=== PATIENT | female | born 1955 | race Hispanic/Latino ===

== ENCOUNTER 2020-07-08 11:32 | Emergency (ER) | payer SELFPAY ==
[2020-07-08] MEDS ORDERED: TETANUS/DIPHTHERIA TOXOID [ADULT] 0.5 ML VIAL IM ONE (11:46)
[2020-07-08] MEDS ORDERED: HYDROCODONE/ACETAMINOPHEN 10/325 MG TAB ONE (12:06)
[2020-07-08] MEDS ORDERED: L.E.T. GEL 3ML SYG TP ONE (12:34)
== END 2020-07-08 13:30 | disposition home or self-care (01) ==
LOC: EDH 11:32
DX: S01.01XA Laceration without foreign body of scalp, initial encounter (principal); W01.0XXA Fall on same level from slipping, tripping and stumbling without subsequent striking against object, initial encounter; Y93.89 Activity, other specified; Y92.89 Other specified places as the place of occurrence of the external cause; Y99.8 Other external cause status
CPT/HCPCS: 12002; 70450; 90471; 90714

== ENCOUNTER 2020-07-17 10:21 | Emergency (ER) | payer SELFPAY | END 2020-07-17 10:59 | disposition home or self-care (01) | LOC: EDH 10:21 | DX: S01.01XD Laceration without foreign body of scalp, subsequent encounter (principal); R03.0 Elevated blood-pressure reading, without diagnosis of hypertension; X58.XXXD Exposure to other specified factors, subsequent encounter | CPT/HCPCS: 99281 ==

== ENCOUNTER 2020-09-30 10:48 | Inpatient (IN) | payer SELFPAY ==
[~2020-09-30] VITALS: Ht 152.4 cm; Wt 85.5 kg
[2020-09-30] MEDS ORDERED: ONDANSETRON 4MG INJ ONE (11:52)
[2020-09-30] MEDS ORDERED: MORPHINE 4 MG SYG ONE (11:52)
[2020-09-30 13:01] LABS: BASOPHILS % (AUTO) 0.8 % (0.0-5.0); EOSINOPHILS % (AUTO) 0.5 % (0.0-8.0); HEMATOCRIT 46.7 % (36-48); LYMPHOCYTES % (AUTO) 23.2 % (21.0-51.0); MEAN CORPUSCULAR HGB CONC 31.9 g/dL (32.0-36.0); NEUTROPHILS % (AUTO) 68.9 % (40.0-77.0); PLATELET COUNT (AUTO) 370 K/uL (130-400); RED BLOOD CELL COUNT(AUTO) 5.13 MIL/uL (4.00-5.50); RED CELL DISTRIBUTION WIDTH 13.2 % (11.0-15.5); WHITE BLOOD COUNT (AUTO) 11.8 K/uL (4.8-10.8)
[2020-09-30 13:07] LABS: PROTHROMBIN TIME 10.9 SEC (9.6-11.6)
[2020-09-30 13:08] LABS: PARTIAL THROMBOPLASTIN TIME 24.7 SEC (26.3-35.5)
[2020-09-30 13:11] LABS: CREATININE 0.8 mg/dL (0.5-1.5); POTASSIUM 3.6 mmol/L (3.5-5.1)
[2020-09-30 13:15] LABS: ALBUMIN 3.9 g/dL (3.5-5.0); BILIRUBIN,TOTAL 0.4 mg/dL (0.2-1.0); TOTAL PROTEIN, SERUM 7.8 g/dL (6.0-8.3)
[2020-09-30] MEDS ORDERED: ONDANSETRON 4MG INJ IV PRN (13:45)
[2020-09-30] MEDS ORDERED: ACETAMINOPHEN WITH CODEINE 1 TAB TAB ONE (16:58)
[2020-09-30] MEDS ORDERED: CEFTRIAXONE 1G VIAL ONE (19:10)
[2020-09-30] MEDS: FAMOTIDINE 20MG VIAL IV SCH (21:00)
[2020-09-30] MEDS ORDERED: FAMOTIDINE 20MG VIAL IV ONE (21:27)
[2020-09-30 21:45] VITALS: BP 137/41
[2020-09-30] MEDS: ACETAMINOPHEN WITH CODEINE 1 TAB TAB PO PRN (22:04)
[2020-10-01] VITALS (23 sets, daily range): BP systolic 121–161; BP diastolic 55–91
[2020-10-01 04:03] LABS: BASOPHILS % (AUTO) 0.5 % (0.0-5.0); EOSINOPHILS % (AUTO) 0.4 % (0.0-8.0); HEMATOCRIT 43.7 % (36-48); LYMPHOCYTES % (AUTO) 23.4 % (21.0-51.0); MEAN CORPUSCULAR HEMOGLOBIN 29.8 pg (27.0-33.0); MEAN CORPUSCULAR HGB CONC 32.7 g/dL (32.0-36.0); MONOCYTES % (AUTO) 7.3 % (3.0-13.0); PLATELET COUNT (AUTO) 354 K/uL (130-400); RED CELL DISTRIBUTION WIDTH 13.3 % (11.0-15.5)
[2020-10-01] MEDS: MORPHINE 2 MG SYG IV PRN ×3 (04:15→15:37)
[2020-10-01 04:16] LABS: CREATININE 0.9 mg/dL (0.5-1.5); POTASSIUM 3.8 mmol/L (3.5-5.1)
[2020-10-01] MEDS: CEFTRIAXONE 1G VIAL IV SCH (09:34)
[2020-10-01] MEDS: FAMOTIDINE 20MG VIAL IV SCH ×2 (09:34→20:40)
[2020-10-01 09:47] LABS: APPEARANCE,URINE Clear (CLEAR); BILIRUBIN,URINE Negative (NEGATIVE); COLOR,URINE Yellow (YELLOW); GLUCOSE, URINE (UA) Negative (NEGATIVE); KETONES,URINE Negative (NEGATIVE); LEUKOCYTE ESTERASE ,URINE Trace (NEGATIVE); NITRATE,URINE Negative (NEGATIVE); OCCULT BLOOD,URINE Trace (NEGATIVE); PH,URINE 5.5 (5.0-8.0); PROTEIN,URINE Negative (NEGATIVE)
[2020-10-01 10:08] LABS: BACTERIA,URINE Moderate /HPF (None Seen)
[2020-10-01] MEDS ORDERED: ROPIVACAINE 0.5% 5MG/ML 30ML IJ ONE ×2 (12:44→13:02)
[2020-10-01] MEDS ORDERED: LIDOCAINE PF 100MG/5ML (2%) SYRINGE 5ML ONE (13:02)
[2020-10-01] MEDS ORDERED: PROPOFOL 10 MG/ML 20ML VIAL IV ONE (13:03)
[2020-10-01] MEDS ORDERED: MIDAZOLAM HCL 1 MG/ML 2ML VIAL ONE (13:03)
[2020-10-01] MEDS ORDERED: FENTANYL CITRATE PF 50 MCG/1 ML 2ML VIAL ONE (13:16)
[2020-10-01] MEDS ORDERED: ONDANSETRON 4MG INJ ONE (13:28)
[2020-10-01] MEDS ORDERED: DEXAMETHASONE SOD PHOSPHATE 4 MG/ML 1ML VIAL ONE (13:28)
[2020-10-01] MEDS: LACTATED RINGERS 1000ML 1,000 ML IV SCH ×2 (14:30→15:36)
[2020-10-01] MEDS ORDERED: MEPERIDINE-PF 25 MG/ML SYG ONE (14:35)
[2020-10-01] MEDS: ACETAMINOPHEN WITH CODEINE 1 TAB TAB PO PRN (20:39)
[2020-10-02 03:26] VITALS: BP 143/75
[2020-10-02] MEDS: ACETAMINOPHEN WITH CODEINE 1 TAB TAB PO PRN ×2 (03:31→17:03)
[2020-10-02 06:28] LABS: BASOPHILS % (AUTO) 0.3 % (0.0-5.0); HEMATOCRIT 40.3 % (36-48); LYMPHOCYTES % (AUTO) 13.4 % (21.0-51.0); MEAN CORPUSCULAR HEMOGLOBIN 29.9 pg (27.0-33.0); MEAN CORPUSCULAR HGB CONC 33.5 g/dL (32.0-36.0); MEAN CORPUSCULAR VOLUME 89.4 fL (79-99); MONOCYTES % (AUTO) 7.2 % (3.0-13.0); NEUTROPHILS % (AUTO) 78.7 % (40.0-77.0); PLATELET COUNT (AUTO) 339 K/uL (130-400); RED BLOOD CELL COUNT(AUTO) 4.51 MIL/uL (4.00-5.50); RED CELL DISTRIBUTION WIDTH 13.2 % (11.0-15.5); WHITE BLOOD COUNT (AUTO) 17.9 K/uL (4.8-10.8)
[2020-10-02 06:38] LABS: ALBUMIN 3.4 g/dL (3.5-5.0); BILIRUBIN,TOTAL 0.9 mg/dL (0.2-1.0); CREATININE 0.7 mg/dL (0.5-1.5); POTASSIUM 3.9 mmol/L (3.5-5.1); TOTAL PROTEIN, SERUM 7.2 g/dL (6.0-8.3)
[2020-10-02] MEDS: LACTATED RINGERS 1000ML 1,000 ML IV SCH (08:30)
[2020-10-02 08:50] VITALS: BP 136/94
[2020-10-02] MEDS: MORPHINE 2 MG SYG IV PRN ×3 (09:16→22:56)
[2020-10-02] MEDS: FAMOTIDINE 20MG VIAL IV SCH ×2 (09:22→21:00)
[2020-10-02] MEDS: CEFTRIAXONE 1G VIAL IV SCH (09:23)
[2020-10-02] MEDS ORDERED: ZOSYN 3.375GM+NS 50ML 50 ML IV SCH (09:45)
[2020-10-02 11:00] VITALS: BP 110/67
[2020-10-02 16:48] VITALS: BP 140/73
[2020-10-02 19:24] VITALS: BP 116/72
[2020-10-02] MEDS: ZOSYN 3.375GM+NS 50ML 50 ML IV SCH (20:59)
[2020-10-02 23:22] VITALS: BP 141/65
[2020-10-03 03:29] VITALS: BP 133/67
[2020-10-03] MEDS: ZOSYN 3.375GM+NS 50ML 50 ML IV SCH ×3 (04:17→19:49)
[2020-10-03] MEDS: LACTATED RINGERS 1000ML 1,000 ML IV SCH (04:18)
[2020-10-03] MEDS: ACETAMINOPHEN WITH CODEINE 1 TAB TAB PO PRN ×4 (04:22→22:56)
[2020-10-03 06:30] LABS: BASOPHILS % (AUTO) 0.5 % (0.0-5.0); EOSINOPHILS % (AUTO) 0.6 % (0.0-8.0); HEMATOCRIT 38.2 % (36-48); LYMPHOCYTES % (AUTO) 17.3 % (21.0-51.0); MONOCYTES % (AUTO) 7.3 % (3.0-13.0); NEUTROPHILS % (AUTO) 73.9 % (40.0-77.0); PLATELET COUNT (AUTO) 304 K/uL (130-400); RED CELL DISTRIBUTION WIDTH 13.2 % (11.0-15.5); WHITE BLOOD COUNT (AUTO) 13.1 K/uL (4.8-10.8)
[2020-10-03 06:42] LABS: CREATININE 0.8 mg/dL (0.5-1.5); POTASSIUM 3.6 mmol/L (3.5-5.1)
[2020-10-03 08:00] VITALS: BP 132/66
[2020-10-03] MEDS: FAMOTIDINE 20MG VIAL IV SCH ×2 (08:38→19:49)
[2020-10-03 12:00] VITALS: BP 124/56
[2020-10-03 17:04] VITALS: BP 124/60
[2020-10-03 20:24] VITALS: BP 134/55
[2020-10-04 00:28] VITALS: BP 134/63
[2020-10-04] MEDS: LACTATED RINGERS 1000ML 1,000 ML IV SCH (00:30)
[2020-10-04] MEDS: ZOSYN 3.375GM+NS 50ML 50 ML IV SCH (03:30)
[2020-10-04 04:28] VITALS: BP 127/68
[2020-10-04 04:35] LABS: BASOPHILS % (AUTO) 0.5 % (0.0-5.0); EOSINOPHILS % (AUTO) 1.6 % (0.0-8.0); HEMATOCRIT 38.8 % (36-48); LYMPHOCYTES % (AUTO) 27.8 % (21.0-51.0); MEAN CORPUSCULAR HEMOGLOBIN 29.8 pg (27.0-33.0); MEAN CORPUSCULAR VOLUME 90.2 fL (79-99); MONOCYTES % (AUTO) 6.2 % (3.0-13.0); NEUTROPHILS % (AUTO) 63.5 % (40.0-77.0); PLATELET COUNT (AUTO) 322 K/uL (130-400); RED CELL DISTRIBUTION WIDTH 13.2 % (11.0-15.5); WHITE BLOOD COUNT (AUTO) 12.2 K/uL (4.8-10.8)
[2020-10-04 04:47] LABS: CREATININE 0.7 mg/dL (0.5-1.5); POTASSIUM 3.4 mmol/L (3.5-5.1)
[2020-10-04] MEDS ORDERED: LIDOCAINE HCL-MPF 1% 2ML VIAL IV PRN (05:00)
[2020-10-04] MEDS ORDERED: POTASSIUM CHLORIDE 20MEQ/100ML 100 ML IV PRN (05:00)
[2020-10-04] MEDS ORDERED: KCL 20 MEQ ERTAB PO PRN (05:00)
[2020-10-04] MEDS ORDERED: POTASSIUM CHLORIDE 10% ELIXIR 20 MEQ/15 ML UDCUP PO PRN (05:00)
[2020-10-04] MEDS ORDERED: KCL 20 MEQ ERTAB PO ONE (05:12)
[2020-10-04] MEDS: ACETAMINOPHEN WITH CODEINE 1 TAB TAB PO PRN ×2 (05:26→10:14)
[2020-10-04] MEDS: FAMOTIDINE 20MG VIAL IV SCH (08:38)
[2020-10-04 08:42] VITALS: BP 142/53
[2020-10-04 11:42] VITALS: BP 128/51
[2020-10-04] MEDS ORDERED: CEPH500B PO (11:52)
== END 2020-10-04 13:50 | disposition home or self-care (01) | DRG 511 ==
LOC: EDH 10:48 → EDHIP 10:49 → 4AH 21:27
PROVIDERS: ADMIT Internal Medicine; ATTEND Internal Medicine
PROC: 0PSK06Z Reposition Right Ulna with Intramedullary Internal Fixation Device, Open Approach (ICD-10-PCS; principal; 2020-10-01 13:00)
PROC: 3E0T3BZ Introduction of Anesthetic Agent into Peripheral Nerves and Plexi, Percutaneous Approach (ICD-10-PCS; 2020-10-01 13:00)
DX: S52.021A Displaced fracture of olecranon process without intraarticular extension of right ulna, initial encounter for closed fracture (principal); N39.0 Urinary tract infection, site not specified; D72.829 Elevated white blood cell count, unspecified; J45.909 Unspecified asthma, uncomplicated; W01.0XXA Fall on same level from slipping, tripping and stumbling without subsequent striking against object, initial encounter; Y93.89 Activity, other specified; Y99.8 Other external cause status; Y92.009 Unspecified place in unspecified non-institutional (private) residence as the place of occurrence of the external cause
CPT/HCPCS: 36415; 73080; 80048; 80053; 81001; 83880; 84145; 84484; 85025; 85610; 85730; 86140; 87077; 87088; 87186; 93005; C1713; G0378; J0696; J1100; J2001; J2175; J2250; J2270; J2405; J2543; J2704; J2795; J3010; J3490; J7120